=== PATIENT | female | born 1965 | race Caucasian/White ===

== ENCOUNTER 2017-02-09 05:58 | Day surgery (SDC) | payer OTHER ==
[~2017-02-09] VITALS: Ht 167.6 cm; Wt 87.6 kg
[~2017-02-09 05:58] MED LIST: BUSP7.5T7 PO; CETI-115 PO; CHOL200047 PO; ESTR1PAT4 TOP; GUAI120015 PO
[2017-02-09 06:08] VITALS: BP 145/81; PULSE 80; RESP 16; TEMP 97.8; O2SAT 99; Ht 167.6 cm; Wt 87.6 kg
[2017-02-09] MEDS ORDERED: ALBU8.5H INH (06:22)
[2017-02-09] MEDS ORDERED: LIDOCAINE 1% (10mg/ml) 2ml SDV INJ ONE (07:00)
[2017-02-09] MEDS ORDERED: LR 1,000 ML IV SCH (07:00)
[2017-02-09] MEDS ORDERED: ONDANSETRON 4mg/2ml INJECTION ONE ×2 (07:22→07:54)
[2017-02-09] MEDS ORDERED: PROPOFOL 500mg 0 ML IV ONE (07:22)
--- NOTE | 2017-02-09 07:29 | ANESPREOP ---
Anesthesia Record Date and Time DATE: 02/09/17 TIME: 709 Proposed Surgical Procedure COLONOSCOPY Allergies: Coded Allergies: cephalexin (Verified Allergy, Unknown, RASH, 02/09/17) Ht/Wt/BMI Height: 5 ' 6.00 " Weight: 87.600 kg BMI: 31.2 kg/m2 Vital Signs Date Time Temp Pulse Resp B/P Pulse Ox O2 Delivery O2 Flow Rate FiO2 02/09/17 06:08 97.8 80 16 145/81 99 Room Air Medications Inpatient Medications Current Medications Medications (Trade) Dose Ordered Sig/Jose Start Time Stop Time Status Last Admin Dose Admin Lactated Ringer's (Lactated Ringers) 1,000 ml @ 50 mls/hr Q20H 02/09/17 07:00 02/09/17 06:33 50 MLS/HR Albuterol Sulfate (Proair HFA 90 mcg/actuation) 8.5 Gm Hfa.aer.ad, 2 PUFF INH Q4H PRN for ASTHMA, (Reported) Last Taken: on 02/04/17 Buspirone HCl (Buspirone HCl) 7.5 Mg Tablet, 1 TAB PO BID, (Reported) Last Taken: on 02/08/17 0700 Cetirizine HCl (Zyrtec) 10 Mg Tablet, 1 TAB PO DAILY, (Reported) Last Taken: on 02/08/17 0700 Cholecalciferol (Vitamin D3) (Vitamin D3) 2, 000 Unit Capsule, 1 CAP PO DAILY, (Reported) Last Taken: on 02/08/17 0700 Estradiol (Vivelle-Dot TDS 0.075 mg/d (BW)) 1 Each Patch.tdsw, 1 PATCH TOP MoTh@0900, (Reported) TWICE A WEEK PATCH. APPLY TO CLEAN, DRY, HAIR-FREE AREA. Last Taken: on 02/05/17 0700 Guaifenesin (Mucinex) 1,200 Mg Tbbp.12hr, 1 TAB PO BID, (Reported) Last Taken: on 02/07/17 0700 Currently on Beta Viola: No Medical/Surgical History Anesthesia PMH: Reports: Arthritis (KNEES), Asthma (EXERCISE/ALLERGY/COLD INDUCED--uses inhaler prn), Denies: *Diabetes, Anesthesia Reactions (NO AIRWAY ISSUES), Cancer, Clotting Problems, Glaucoma, Malignant Hyperthermia, Renal Disease, Sleep Apnea, Thyroid Disease Smoking Status: Never smoker Use Chewing Tobacco?: No Second Hand Exposure: No Substance Use Type: does not use Alcohol Intake: a few times a week Last Drink: prior to arrival, hours (ago) (8) HX of Last Menstrual Period: 2005 Past Surgical History Orthopedic Surgeries: Yes - R KNEE SCOPE Abdominal Surgeries: Genitourinary Surgeries: Cardiac Surgeries: Endocrine Surgeries: Reproductive Surgeries: Yes - HYSTERECTOMY Neurological Surgeries: Ear Surgeries: Nose Surgeries: Throat Surgeries: Yes - TONSILLECTOMY Other Surgeries: Yes - DRAINED FIBROID CYST L BREAST PER H&P Anesthesia Adverse Reactions: FOUND none Family Hx of Anesthesia Advers: none Hx of Motion Sickness: No Physical Exam Respiratory: Lungs clear Cardiovascular: FOUND Regular rate, rhythm Airway Assessment Mallampati Score: II TMD: 3 Fingerbreadths Neck Extension: Good ASA: 2 Plan Anesthesia Plan: TIVA Discussion Discussed risks/options/alternatives of anesthesia and questions answered. Patient consents. Nursing pain assessment noted. Present: Spouse Attestation Statement Prior to the delivery of any anesthetic medication, I examined the patient, developed the plan, obtained the patient's consent and discussed the risk and benefits of the procedure with the patient/guardian. MARCIA WALSH MATERIAL CONTROL ASSOCIATE Feb 09, 2017 07:29
[2017-02-09] MEDS ORDERED: SIMETHICONE 67 MG/ML ORAL DROPS ONE (07:52)
[2017-02-09] MEDS ORDERED: PROPOFOL 500mg 50 ML IV ONE (07:54)
[2017-02-09] MEDS ORDERED: PROPOFOL 200mg 0 ML IV ONE (07:58)
[2017-02-09 08:04] VITALS: BP 144/59; PULSE 75; RESP 14; TEMP 97.2; O2SAT 99
[2017-02-09 08:15] VITALS: BP 130/62; PULSE 74; RESP 14; O2SAT 99
[2017-02-09 08:30] VITALS: BP 133/75; PULSE 70; RESP 20; O2SAT 99
--- NOTE | 2017-02-09 09:24 | OPNOTEF ---
[facility] DATE: 02/09/2017 PREOPERATIVE DIAGNOSIS: Screening colonoscopy. POSTOPERATIVE DIAGNOSIS: 2 mm nodular polyp in the rectum. PROCEDURE: Colonoscopy with biopsy of rectal polyp. SURGEON: Flex Cullen MD ANESTHESIA: TIVA PROCEDURE NOTE: The patient was prepped with Colyte the evening prior to the procedure. She was placed in the left lateral position. After a benign digital rectal exam, the colonoscope was inserted and advanced to the cecum with cecal landmarks identified. The cecum, ascending colon, transverse colon and sigmoid showed no evidence of hemorrhage, mass lesions, ulcerations or inflammatory changes. The patient had a 2 mm slightly nodular benign-appearing hyperplastic polyp in the rectum which was biopsied for pathology. The remainder of the rectum and anus were clear. The colon was suctioned and the scope removed with the patient tolerating the procedure well. Anticipate followup between 5 to 10 years depending upon outcome of pathology. SANTI
--- NOTE | 2017-02-09 09:40 | ANESPO ---
Post-Op Note Date 02/09/17 Time: 08:20 Status Pt Participated in Evaluation: Pt participated in person Vital Signs Date Time Temp Pulse Resp B/P Pulse Ox O2 Delivery O2 Flow Rate FiO2 02/09/17 08:30 70 20 133/75 99 Room Air 02/09/17 08:04 97.2 Respiratory Function: Airway patent Cardiovascular Function: Regular pulse Mental Status: Alert/oriented Pain Level Intensity: 0 Hydration: Taking po fluids Complications during Recovery None apparent Follow-Up Instructions Instructions Per Surgeon MARCIA WALSH CRNA Feb 09, 2017 09:40
== END 2017-02-09 08:38 | disposition home or self-care (01) ==
LOC: NSC 05:58
DX: Z12.11 Encounter for screening for malignant neoplasm of colon (principal); K62.1 Rectal polyp; Z79.899 Other long term (current) drug therapy; Z79.890 Hormone replacement therapy
CPT/HCPCS: 45380; J2405; J7120